=== PATIENT | female | born 1985 | race Caucasian/White ===

== ENCOUNTER 2017-07-28 15:10 | Emergency (ER) | payer SELFPAY | END 2017-07-28 19:53 | disposition left against medical advice (07) | LOC: FTE 15:10 → E/R 19:53 | DX: Z53.21 Procedure and treatment not carried out due to patient leaving prior to being seen by health care provider (principal) ==

== ENCOUNTER 2018-11-03 22:02 | Emergency (ER) | payer SELFPAY | END 2018-11-03 22:53 | disposition left against medical advice (07) | LOC: FTE 22:02 | DX: Z53.21 Procedure and treatment not carried out due to patient leaving prior to being seen by health care provider (principal) ==